=== PATIENT | female | born 1945 | race Caucasian/White ===

== ENCOUNTER → 2018-05-30 | Outpatient (CLI) | payer OTHER | LOC: M.CT 09:00 | DX: K80.20 Calculus of gallbladder without cholecystitis without obstruction (principal); R10.9 Unspecified abdominal pain ==

== ENCOUNTER → 2019-12-24 | Outpatient (CLI) | payer OTHER | LOC: M.RAD 08:47 | DX: M85.88 Other specified disorders of bone density and structure, other site (principal); Z78.0 Asymptomatic menopausal state ==

== ENCOUNTER 2020-05-02 15:35 | Emergency (ER) | payer OTHER ==
[~2020-05-02] VITALS: Ht 170.2 cm; Wt 68.0 kg
[2020-05-02] MEDS ORDERED: HYDROCHLOROTHIA25 M2 PO (15:44)
[2020-05-02] MEDS ORDERED: OMEPRAZOLE 20 M20 M1 PO (15:44)
[2020-05-02 15:54] LABS: ABSOLUTE BASOPHILS 0.1 thou/uL (0.0-0.2); ABSOLUTE EOSINOPHILS 0.1 thou/uL (0.0-0.7); ABSOLUTE LYMPHOCYTES 2.4 thou/uL (0.8-5.3); ABSOLUTE MONOCYTES 0.5 thou/uL (0.0-1.2); ABSOLUTE NEUTROPHILS 3.5 thou/uL (1.6-8.1); EOSINOPHILS 1.7 %; HEMOGLOBIN 13.7 gm/dL (12.0-15.0); LYMPHOCYTES 36.1 %; MCH 32.2 pg (26.0-34.0); MCHC 35.1 g/dL (28.0-37.0); MCV 91.6 fL (80.0-100.0); MONOCYTES 7.6 %; MPV 7.4 fl. (7.2-11.1); NUCLEATED RBCS 0 /100WBC; PLATELET COUNT* 197 thou/uL (150-400); POLYS 53.6 %; RBC 4.26 mil/uL (4.20-5.00); RDW-CV 12.7 % (10.5-14.5); WBC 6.6 thou/uL (4.0-11.0)
[2020-05-02 16:08] LABS: CREATININE 1.1 mg/dL (0.6-1.3); POTASSIUM 3.4 mmol/L (3.5-5.1)
[2020-05-02 16:11] LABS: APTT 30.3 Seconds (25.0-31.3); PROTIME 10.5 Seconds (9.20-11.50)
[2020-05-02 16:22] LABS: ALBUMIN 3.9 g/dL (3.4-5.0); CK-MB MASS 1.9 ng/mL (<0.5-3.6); MAGNESIUM 1.8 mg/dL (1.8-2.4); TOTAL BILIRUBIN 0.3 mg/dL (<0.1-1.0); TOTAL PROTEIN 7.1 g/dL (6.4-8.2)
[2020-05-02 17:57] VITALS: BP 143/50
--- NOTE | 2020-05-03 13:38 | EKG ---
[place] [address] ELECTROCARDIOGRAM REPORT Name: HOMA ALLISON Room: [facility]#: [id number] Admission: 05/02/20 Attend Phys: Discharge: 05/02/20 Date of : 43 Date of Service: 05/02/20 1540 Report #: [id number] THIS REPORT FOR: //name// [facility] ED Test Date: 2020-05-02 Test Time: 15:40:03 Pat Name: HOMA ALLISON Department: Room: Gender: Technical Sales Consultant: MD : [id number] Requested By: Noel Mcfadden Order Number: [id number] MD: Issa Kim Measurements Intervals [place] Rate: 77 P: 66 RI: 141 QRS: 19 QRSD: 98 T: -45 QT: 470 QTc: 533 Interpretive Statements Sinus rhythm Atrial premature complexes in couplets Diffuse ST segment depression, consider ischemia Prolonged QT interval Baseline wander in lead(s) III No previous ECG available for comparison Electronically Signed On 05-03-2020 13:37:55 CDT by Issa Kim [email or web address] <ELECTRONICALLY SIGNED> By: Issa Kim MD, FACC 05/03/20 1337 1540 1540 Issa Kim MD, [facility] /EPI
== END 2020-05-02 17:58 | disposition home or self-care (01) ==
LOC: M.ERS 15:35
PROVIDERS: Family Medicine
DX: R07.89 Other chest pain (principal); I10 Essential (primary) hypertension; Z96.652 Presence of left artificial knee joint

== ENCOUNTER → 2020-11-28 | Outpatient (CLI) | payer OTHER ==
[~2020-11-28] MED LIST: HYDROCHLOROTHIA25 M2 PO; OMEPRAZOLE 20 M20 M1 PO
== END ==
LOC: M.LAB 05:56
PROVIDERS: ATTEND Anesthesiology
DX: E87.6 Hypokalemia (principal)